=== PATIENT | male | born 1950 | race American Indian/Alaskan Native ===

== ENCOUNTER 2016-11-13 06:55 | Emergency (ER) | payer SELFPAY ==
[2016-11-13] MEDS ORDERED: DUONEB 0.5 MG-3 MG/3 ML SOLN IH ONE (07:58)
--- NOTE | 2016-11-13 08:08 | Emergency Department Report ---
ED Asthma HPI - General Chief Complaint: Adult Asthma Stated Complaint: CHEST PAIN Time Seen by Provider: 11/13/16 07:23 Source: patient Mode of arrival: Ambulatory Limitations: No Limitations - History of Present Illness Initial Comments: This is a 65-year-old male well-nourished with nontoxic or ill in appearance that complains of asthma with chest pain/tightness since last night. Patient stated has a history of asthma and has not been on his medication. Patient denies having a primary care doctor. Patient states has chest pain that is a level III out of a 10. Patient denies any radiation of chest pain. Patient denies any shortness of breath, dizziness, nausea vomiting, numbness or tingling sensation extremities. Patient denies chance of breath while ambulatory. Patient also stated has been wheezing since last night. Patient stated has allergies to seasonal and has been outside all day yesterday gardening. Based denies any allergies. MD Complaint: "asthma attack" -: Gradual Asthma History: childhood onset Severity: moderate Context: allergen exposure (possible pollen) Associated Symptoms: none. denies: productive cough, dry cough, fever, chest pain, hemoptysis, leg edema, syncope - Related Data Previous Rx's Medication Instructions Recorded Last Taken Type ALBUTEROL Inhaler [ProAir HFA 1 puff IH PRN #1 inha 11/13/16 Unknown Rx Inhaler] Prednisone [predniSONE] 40 mg PO QDAY 5 Days 11/13/16 Unknown Rx Allergies Allergy/AdvReac Type Severity Reaction Status Date / Time No Known Allergies Allergy Unverified 11/13/16 07:20 ED Review of Systems ROS: Stated complaint: CHEST PAIN Other details as noted in HPI Constitutional: denies: chills, fever Eyes: denies: eye pain, eye discharge, vision change ENT: denies: ear pain, throat pain Respiratory: wheezing. denies: cough, orthopnea, shortness of breath, SOB with exertion, SOB at rest Cardiovascular: denies: chest pain, palpitations Endocrine: no symptoms reported Gastrointestinal: denies: abdominal pain, nausea, diarrhea Genitourinary: denies: urgency, dysuria Musculoskeletal: denies: back pain, joint swelling, arthralgia Skin: denies: rash, lesions Neurological: denies: headache, weakness, paresthesias Psychiatric: denies: anxiety, depression Hematological/Lymphatic: denies: easy bleeding, easy bruising ED Past Medical Hx - Past Medical History Previous Medical History?: Yes Hx Asthma: Yes - Surgical History Past Surgical History?: Yes Additional Surgical History: Back Sx - Social History Smoking Status: Unknown if ever smoked Substance Use Type: None - Medications Home Medications: Home Medications Medication Instructions Recorded Confirmed Last Taken Type ALBUTEROL Inhaler [ProAir HFA 1 puff IH PRN #1 inha 11/13/16 Unknown Rx Inhaler] Prednisone [predniSONE] 40 mg PO QDAY 5 Days 11/13/16 Unknown Rx ED Physical Exam - General Limitations: No Limitations General appearance: alert, in no apparent distress - Head Head exam: Present: atraumatic, normocephalic, normal inspection - Eye Eye exam: Present: normal appearance, PERRL, EOMI - ENT ENT exam: Present: normal exam, normal orophraynx, mucous membranes moist, TM's normal bilaterally, normal external ear exam - Neck Neck exam: Present: normal inspection, full ROM. Absent: tenderness, meningismus, lymphadenopathy, thyromegaly - Respiratory Respiratory exam: Present: normal lung sounds bilaterally, wheezes (bilateral upper and lower lobes). Absent: respiratory distress, rales, rhonchi, stridor, chest wall tenderness, accessory muscle use, decreased breath sounds, prolonged expiratory - Cardiovascular Cardiovascular Exam: Present: regular rate, normal rhythm, normal heart sounds. Absent: bradycardia, tachycardia, irregular rhythm, systolic murmur, diastolic murmur, rubs, gallop - GI/Abdominal GI/Abdominal exam: Present: soft, normal bowel sounds. Absent: distended, tenderness - Rectal Rectal exam: Present: deferred - Extremities Exam Extremities exam: Present: normal inspection, full ROM, normal capillary refill. Absent: tenderness, pedal edema, joint swelling, calf tenderness - Back Exam Back exam: Present: normal inspection, full ROM. Absent: tenderness, CVA tenderness (R), CVA tenderness (L), muscle spasm, paraspinal tenderness, vertebral tenderness, rash noted - Neurological Exam Neurological exam: Present: alert, oriented X3, CN II-XII intact, normal gait - Psychiatric Psychiatric exam: Present: normal affect, normal mood - Skin Skin exam: Present: warm, dry, intact, normal color. Absent: rash ED Course Vital Signs 11/13/16 11/13/16 11/13/16 07:13 08:14 08:20 Temperature 98.6 F Pulse Rate 84 Pulse Rate [ 84 86 Right Bases] Respiratory Rate Respiratory 18 18 Rate [Right Bases] Blood Pressure 156/106 Blood Pressure [Left] O2 Sat by Pulse 99 Oximetry 11/13/16 09:00 Temperature Pulse Rate 89 Pulse Rate [ Right Bases] Respiratory 18 Rate Respiratory Rate [Right Bases] Blood Pressure Blood Pressure 142/102 [Left] O2 Sat by Pulse 97 Oximetry - Reevaluation(s) Reevaluation #1: 11/13/16 09:37 Patient stated feels much better after Solu-Medrol IM and DuoNeb. Patient stated does not have any shortness of breath or chest pain currently. No wheezing present. DuoNeb peak flow post was 300. ED Medical Decision Making - Lab Data Result diagrams: 11/13/16 07:33 11/13/16 07:33 - Medical Decision Making Ed course: This is a 65-year-old male that presents with exacerbation of asthma. 1- after my physical exam, patient received Solu-Medrol 40 mg IM and DuoNeb in the ED. 2- a peak flow pre-and post has been obtained to ED. Pre-DuoNeb results =300 Post DuoNeb results =300 3- patient was instructed to follow up with his primary care doctor in 3-5 days or if symptoms worsen such as shortness of breath, increased wheezing, chest pain, headache, nausea vomiting report back to emergency room. 4- prednisone 40 mg by mouth and albuterol inhaler was prescribed at the time of discharge. 5- a chest x-ray, troponin, cardiac CK, CBC and a BMP was obtained in ED. Normal finginds. CXR dictated by Dr. Romero. 6- at time time of discharge, the patient does not seem toxic or ill in appearance. No acute signs of distress noted. Patient agrees to discharge treatment plan of care. No further questions noted by the patient. Critical care attestation.: If time is entered above; I have spent that time in minutes in the direct care of this critically ill patient, excluding procedure time. ED Disposition Clinical Impression: Exacerbation of asthma Disposition: DISCHARGED TO HOME OR SELFCARE Is pt being admited?: No Does the pt Need Aspirin: No Condition: Stable Instructions: Asthma (ED) Additional Instructions: follow up with your primary care doctor in 3-5 days or if symptoms worsen such as shortness of breath, increased wheezing, chest pain, headache, nausea vomiting report back to emergency room. Take albuterol inhaler and prednisone as prescribed. Prescriptions: ALBUTEROL Inhaler [ProAir HFA Inhaler] 1 puff IH PRN #1 inha Prednisone [predniSONE] 40 mg PO QDAY 5 Days Referrals: PRIMARY CAREMD [Primary Care Provider] - 3-5 Days [facility] [Outside] - 3-5 Days [facility] [Outside] - 3-5 Days BOB BROWN MD [Staff Physician] - 3-5 Days Forms: Work/School Release Form(ED)
[2016-11-13 08:13] LABS: Basophils % (Auto) 0.7 % (0.0-1.8); Hematocrit 44.8 % (35.5-45.6); Mean Corpuscular HGB Conc 33 % (32-34); Mean Corpuscular Hemoglobin 29 pg (28-32); Mean Corpuscular Volume 88 fl (84-94); Platelet Count 233 K/mm3 (140-440); Red Blood Count 5.08 M/mm3 (3.65-5.03); Red Cell Distribution Width 14.1 % (13.2-15.2); White Blood Count 9.2 K/mm3 (4.5-11.0)
[2016-11-13 08:32] LABS: Creatine Kinase MB 2.9 ng/mL (0.0-4.0)
[2016-11-13 08:34] LABS: Anion Gap 20 mmol/L; Blood Urea Nitrogen 15 mg/dL (9-20); Calcium 9.2 mg/dL (8.4-10.2); Carbon Dioxide 23 mmol/L (22-30); Chloride 104.4 mmol/L (98-107); Creatine Kinase 216 units/L (55-170); Glucose 111 mg/dL (75-100); Potassium 4.5 mmol/L (3.6-5.0); Sodium 143 mmol/L (137-145)
[2016-11-13 09:01] VITALS: BP 142/102
--- NOTE | 2016-11-13 09:26 | XRay Report ---
FINAL REPORT EXAM: XR CHEST ROUTINE 2V HISTORY: CP TECHNIQUE: Frontal and lateral views of the chest. PRIORS: None. FINDINGS: Heart size is normal. Lungs are clear. No pleural effusion or pneumothorax. No vascular congestion. IMPRESSION: 1. No acute finding.
== END 2016-11-13 10:05 | disposition home or self-care (01) ==
LOC: ED 06:55
DX: J45.901 Unspecified asthma with (acute) exacerbation (principal)
CPT/HCPCS: 36415; 71020; 80048; 82550; 82553; 84484; 85025; 93005; 93010; 94640; 96372; 99284; J2920

== ENCOUNTER 2020-10-23 20:18 | Emergency (ER) | payer MEDICARE ==
[2020-10-23 21:15] VITALS: BP 183/107
[2020-10-23] MEDS ORDERED: ASPIRIN 325 MG TAB PO ONE (21:18)
--- NOTE | 2020-10-23 21:23 | Event Note ---
ED Screening Note ED Screening Note: generalized chest pain for two weeks feels like a tightness +cough +SOB no fever no leg swelling no n/v/d PMHx asthma, uses inhaler at home, does not have neb machine hx of HTN, never been on medications has never been admitted for asthma no sick contacts states he recently moved back to [place] about a month ago no allergies to meds non smoker no wheezing noted on exam This initial assessment/diagnostic orders/clinical plan/treatment(s) is/are subject to change based on patients health status, clinical progression and re- assessment by fellow clinical providers in the ED. Further treatment and workup at subsequent clinical providers discretion. Patient/guardian urged not to elope from the ED as their condition may be serious if not clinically assessed and managed. Initial orders include: labs, CXR
[2020-10-23 21:37] LABS: Basophils % (Auto) 0.5 % (0.0-1.8); Eosinophils # (Auto) 0.1 K/mm3 (0.0-0.4); Eosinophils % (Auto) 2.2 % (0.0-4.3); Hemoglobin 15.1 gm/dl (11.8-15.2); Lymphocytes # (Auto) 2.4 K/mm3 (1.2-5.4); Lymphocytes % (Auto) 37.2 % (13.4-35.0); Mean Corpuscular HGB Conc 33 % (32-34); Mean Corpuscular Volume 91 fl (84-94); Monocytes # (Auto) 0.5 K/mm3 (0.0-0.8); Platelet Count 219 K/mm3 (140-440); Red Blood Count 4.95 M/mm3 (3.65-5.03); Red Cell Distribution Width 14.6 % (13.2-15.2)
[2020-10-23 21:55] LABS: Alanine Aminotransferase 14 units/L (7-56); Albumin 4.5 g/dL (3.9-5); BUN/Creatinine Ratio 14; Blood Urea Nitrogen 15 mg/dL (9-20); Hemolysis Index 27
--- NOTE | 2020-10-23 21:57 | XRay Report ---
CHEST 2 VIEWS INDICATION / CLINICAL INFORMATION: chestpain and cough. COMPARISON: None available. FINDINGS: SUPPORT DEVICES: None. HEART / MEDIASTINUM: No significant abnormality. LUNGS / PLEURA: No significant pulmonary or pleural abnormality. No pneumothorax. ADDITIONAL FINDINGS: No significant additional findings. IMPRESSION: 1. No acute findings. Signer Name: Kenneth Villatoro MD Signed: 10/23/2020 9:53 PM Workstation Name: [id number]
== END 2020-10-23 22:00 | disposition left against medical advice (07) ==
LOC: ED 20:18
DX: R07.89 Other chest pain (principal); R06.02 Shortness of breath; Z53.21 Procedure and treatment not carried out due to patient leaving prior to being seen by health care provider
CPT/HCPCS: 36415; 71046; 80053; 83880; 84484; 85025; 93005

== ENCOUNTER 2020-10-24 06:27 | Emergency (ER) | payer MEDICARE | END 2020-10-24 08:34 | disposition left against medical advice (07) | LOC: ED 06:27 | DX: R07.89 Other chest pain (principal); Z53.21 Procedure and treatment not carried out due to patient leaving prior to being seen by health care provider ==